=== PATIENT | female | born 1970 | race Caucasian/White ===

== ENCOUNTER 2018-02-27 21:43 | Emergency (ER) ==
[2018-02-27 21:52] VITALS: TEMP 98.2; BMI 36.5
[2018-02-27] MEDS ORDERED: TORADOL IVP STA (22:12)
--- NOTE | 2018-02-27 22:29 | ED.PDOC ---
General ED Provider: Dr. SISSY LAMBERT Chief Complaint: Abdominal Pain Stated Complaint: Patient is a 48 year old female who comes to the ER with bilateral lower back pain radiating to the groin. Describes the pain as aching and rates it at 9/10. She is currently on her menstral cycle. Time Seen by Physician: 22:27 Mode of Arrival: Walk-In Information Source: Patient, Family Exam Limitations: No limitations Nursing and Triage Documentation Reviewed and Agree: Yes Does patient meet sepsis criteria?: No System Inflammatory Response Syndrome: Not Applicable Sepsis Protocol: For patient's 13 years and over: Temp is 96.8 and below OR 101 and greater Pulse >90 BPM Resp >20/minute Acutely Altered Mental Status Are patient's symptoms suggestive of a new infection, such as: -Pneumonia -Skin, Soft Tissue -Endocarditis -UTI -Bone, Joint Infection -Implantable Device -Acute Abdominal Infection -Wound Infection -Meningitis -Blood Stream Catheter Infection -Unknown GI Complaint Exam - Abdominal Pain Complaint/Exam Onset: Gradual Duration: 1 week Symptoms Are: Still present Location of Pain: Diffuse Radiates To: Reports: Inguinal Character: Reports: Aching, Throbbing Aggravating: Reports: Movement Alleviating: Reports: None Associated Signs and Symptoms: Reports: Back pain, Vaginal bleeding. Denies: Nausea, Vomiting AAA Risk Factors: Reports: None Cardiac Risk Factors: Reports: None Ectopic Risk Factors: Reports: None Ovarian Torsion Risk Factors: Reports: Tubal ligation Surgical Obstruction Risk Factors: Reports: None Related Surgical History: Reports: Tubal ligation Patient Rh Status: Unknown Abdominal Findings: Present: None Differential Diagnoses: Appendicitis, Diverticulitis, Pancreatitis, Ureteral Stone, UTI, Ovarian Cyst Review of Systems - Review Of Systems Constitutional: Reports: No symptoms Eyes: Reports: No symptoms Ears, Nose, Mouth, Throat: Reports: No symptoms Respiratory: Reports: No symptoms Cardiac: Reports: No symptoms GI: Reports: Abdominal pain : Reports: No symptoms Musculoskeletal: Reports: Back pain Skin: Reports: No symptoms Neurological: Reports: No symptoms Endocrine: Reports: No symptoms Hematologic/Lymphatic: Reports: No symptoms All Other Systems: Reviewed and Negative Past Medical History - Past Medical History Previously Healthy: Yes Endocrine: Reports: None Cardiovascular: Reports: None Respiratory: Reports: None Hematological: Reports: None Gastrointestinal: Reports: None Genitourinary: Reports: None Neuro/Psych: Reports: None Musculoskeletal: Reports: None Cancer: Reports: None Last Menstrual Period: PRESSENTLY - Surgical History General Surgical History: Reports: Tubal ligation, Other (D&C X2 AND ENDOMETRIAL ABLATION) - Family History Family History: Reports: None - Social History Smoking Status: Former smoker Hx Substance Use: No Alcohol Screening: None - Immunizations Tetanus Shot up to Date: No Physical Exam - Physical Exam Appearance: Ill-appearing, Obese Ill-appearing: Moderate Pain Distress: Severe Neck: Supple Respiratory: Airway patent, Breath sounds clear, Breath sounds equal, Respirations nonlabored Cardiovascular: RRR, Pulses normal, No rub, No murmur GI/: Soft, No masses, Bowel sounds normal, No Organomegaly, Tender (lower abdominal area. ) Musculoskeletal: Normal strength, ROM intact, No edema, No calf tenderness Skin: Warm, Dry, Normal color Neurological: Sensation intact, Motor intact, Reflexes intact, Cranial nerves intact, Alert, Oriented Psychiatric: Anxious Interpretation - Radiology Interpretation Radiology Interpretation By: Radiologist Radiology Results: Positive (Galls stones but no renal stones, Normal appdendix) Exam Interpreted: CT Scan Critical Care Note - Critical Care Note Total Time (mins): 0 Course - Course Hematology/Chemistry: 02/27/18 22:20 02/27/18 22:20 Orders, Labs, Meds: Lab Review 02/27/18 02/27/18 02/27/18 22:00 22:00 22:20 WBC 12.27 H RBC 4.37 Hgb 12.3 Hct 36.6 L MCV 83.8 MCH 28.1 MCHC 33.6 RDW Coeff of Faisal 13.5 Plt Count 281 Immature Gran % (Auto) 0.3 Neut % (Auto) 82.3 Lymph % (Auto) 11.4 Falls % (Auto) 5.1 Eos % (Auto) 0.4 Baso % (Auto) 0.5 Immature Gran # (Auto) 0.0 Neut # (Auto) 10.1 H Lymph # (Auto) 1.4 Falls # (Auto) 0.6 Eos # (Auto) 0.1 Baso # (Auto) 0.1 Sodium Potassium Chloride Carbon Dioxide Anion Gap BUN Creatinine Estimated GFR (MDRD) BUN/Creatinine Ratio Glucose Calcium Total Bilirubin AST ALT Alkaline Phosphatase Total Protein Albumin Globulin Albumin/Globulin Ratio Amylase Lipase Urine Color Yellow Urine Clarity Clear Urine pH 7.0 Ur Specific Mcdonough 1.025 Urine Protein Trace Urine Glucose (UA) Negative Urine Ketones Negative Urine Blood 3+ Urine Nitrite Negative Urine Bilirubin Negative Urine Urobilinogen 0.2 Ur Leukocyte Esterase Negative Urine Microscopic RBC 20-30 Urine Microscopic WBC 2-5 Ur Squamous Epith Cells 2-5 Urine Mucus Trace Urine Test Negative 02/27/18 02/27/18 22:20 22:20 WBC RBC Hgb Hct MCV MCH MCHC RDW Coeff of Faisal Plt Count Immature Gran % (Auto) Neut % (Auto) Lymph % (Auto) Falls % (Auto) Eos % (Auto) Baso % (Auto) Immature Gran # (Auto) Neut # (Auto) Lymph # (Auto) Falls # (Auto) Eos # (Auto) Baso # (Auto) Sodium 137.1 Potassium 3.39 L Chloride 102.3 Carbon Dioxide 26.8 Anion Gap 11.39 BUN 8.1 Creatinine 0.70 Estimated GFR (MDRD) 89.00 BUN/Creatinine Ratio 11.57 Glucose 136.6 H Calcium 9.27 Total Bilirubin 0.21 AST 29.0 ALT 16.2 Alkaline Phosphatase 79.5 Total Protein 7.74 Albumin 4.40 Globulin 3.34 Albumin/Globulin Ratio 1.31 Amylase 68.3 Lipase 141.1 Urine Color Urine Clarity Urine pH Ur Specific Mcdonough Urine Protein Urine Glucose (UA) Urine Ketones Urine Blood Urine Nitrite Urine Bilirubin Urine Urobilinogen Ur Leukocyte Esterase Urine Microscopic RBC Urine Microscopic WBC Ur Squamous Epith Cells Urine Mucus Urine Test Orders Category Date Time Status ED IV/MEDIPORT/POWERPORT .ONCE EMERGENCY 02/27/18 22:10 Active AMYLASE Stat LAB 02/27/18 22:20 Completed CBC W/ AUTO DIFF Stat LAB 02/27/18 22:20 Completed COMPREHENSIVE METABOLIC PANEL Stat LAB 02/27/18 22:20 Completed LIPASE Stat LAB 02/27/18 22:20 Completed URINALYSIS C & S IF INDICATED Stat LAB 02/27/18 22:00 Completed URINE Stat LAB 02/27/18 22:00 Completed 0.9 % Sodium Chloride [Saline Flush] MEDS 02/27/18 22:10 Discontinued 1 syr IVF PRN PRN Ketorolac Tromethamine [Toradol] MEDS 02/27/18 22:12 Discontinued 30 mg IVP ONCE STA Sodium Chloride 0.9% [Sodium Chloride] 1,000 ml MEDS 02/27/18 23:[address] ABDOMEN/PELVIS WO CONTRAST Stat RADS 02/27/18 22:13 Completed Medications Discontinued Medications Generic Name Dose Route Start Last Admin Trade Name Freq PRN Reason Stop Dose Admin Sodium Chloride 1,000 mls @ 1,000 mls/hr 02/27/18 23:04 Sodium Chloride IV 02/28/18 00:03 BOLUS STA Ketorolac Tromethamine 30 mg 02/27/18 22:12 02/27/18 22:26 Toradol IVP 02/27/18 22:13 30 mg ONCE STA Administration Sodium Chloride 1 syr 02/27/18 22:10 Saline Flush IVF PRN PRN To flush IV Vital Signs: Temp Pulse Resp BP Pulse Ox 02/27/18 22:32 106 H 143/96 H 98 02/27/18 21:44 98.2 F 85 20 183/103 H 97 Departure - Departure Time of Disposition: 23:43 Disposition: HOME SELF-CARE Discharge Problem: Dysmenorrhea Instructions: Dysmenorrhea (ED) Condition: Good Pt referred to PMD for follow-up: Yes IPMP verified?: No Additional Instructions: Take medications a prescribed Do not take Midol while on Toradol They are both NSAIDS Follow up with PCP in 3 days Prescriptions: Hydrocodone Bit/Acetaminophen [[place] 5-325] 1 each PO Q6HR PRN #15 tablet PRN Reason: severe pain Ketorolac Tromethamine [Toradol] 10 mg PO Q6H #30 tablet Allergies/Adverse Reactions: Allergies No Known Drug Allergies Adverse Reaction (Verified 02/27/18 21:52) Home Medications: Ambulatory Orders Hydrocodone Bit/Acetaminophen [[place] 5-325] 1 each PO Q6HR PRN #15 tablet Ketorolac Tromethamine [Toradol] 10 mg PO Q6H #30 tablet 02/27/18 Lisinopril 10 mg PO DAILY 02/27/18 Disposition Discussed With: Patient, Family
[2018-02-27 22:33] VITALS: BP 143/96
[2018-02-27 22:43] LABS: URINE PREGNANCY TEST NEGATIVE (NEGATIVE)
[2018-02-27] MEDS ORDERED: SODIUM CHLORIDE 1,000 ML IV STA (23:04)
--- NOTE | 2018-02-27 23:14 | CT ---
EXAM: CT of the abdomen and pelvis without contrast. HISTORY: Bilateral lower back pain radiating to groin. PROCEDURE: Contiguous axial CT images of the abdomen and pelvis without contrast with coronal and sa gittal reformats. FINDINGS: The liver is normal in appearance. There are gallstones filling the gallbladder. The gall bladder is within normal limits in size. The gallbladder wall is not well visualized by CT. The price creas, spleen, adrenal glands and kidneys are normal in appearance. The ureters are incompletely visu alized. The abdominal aorta is within normal limits in diameter. The appendix is normal in appearanc e. There is minimal diverticulosis of the colon with no evidence of diverticulitis. There is fecal st asis in the colon. No bowel obstruction. No free fluid or free air in the abdomen or pelvis. The bl adder is minimally filled with no abnormality identified. The uterus is unremarkable. There are clinton gical clips in the bilateral adnexa. There are degenerative changes in the spine. The bones and soft tissues are unremarkable. Impression: Cholelithiasis as described. No nephrolithiasis or hydronephrosis. The ureters are incompletely visualized and a nonobstructive u reterolith cannot be excluded. Minimal diverticulosis of the colon. Operative changes as described.
== END 2018-02-27 23:57 | disposition home or self-care (01) ==
LOC: ED 21:43
DX: N94.6 Dysmenorrhea, unspecified (principal)
CPT/HCPCS: 36415; 80053; 81001; 81025; 82150; 83690; 85025; 96361; 96374; 99283